=== PATIENT | female | born 1990 | race Two or more races ===

== ENCOUNTER 2017-12-25 08:40 | Outpatient (CLI) | payer OTHER | END 2017-12-25 08:48 | disposition home or self-care (01) | LOC: SONOGRAMA 08:40 | DX: N60.11 Diffuse cystic mastopathy of right breast (principal); N60.12 Diffuse cystic mastopathy of left breast ==

== ENCOUNTER 2020-02-08 10:34 | Outpatient (CLI) | payer OTHER | END 2020-02-08 11:09 | disposition home or self-care (01) | LOC: NST 10:34 | PROVIDERS: ATTEND Obstetrics & Gynecology Maternal & Fetal Medicine | DX: Z34.83 Encounter for supervision of other normal pregnancy, third trimester (principal) ==

== ENCOUNTER 2020-04-02 11:53 | Inpatient (IN) | payer OTHER ==
[~2020-04-02] VITALS: Ht 167.6 cm; Wt 70.3 kg
[2020-04-18] MEDS ORDERED: PRENATAL TABLE1 EAC1 PO (05:20)
== END 2020-04-20 12:55 | disposition home or self-care (01) | DRG 807 ==
LOC: OB/GYN 04-18 04:40 → LDR 04-18 04:40 → OB/GYN 04-18 14:39
PROVIDERS: ADMIT Obstetrics & Gynecology Maternal & Fetal Medicine; ATTEND Obstetrics & Gynecology Maternal & Fetal Medicine
PROC: 10E0XZZ Delivery of Products of Conception, External Approach (ICD-10-PCS; principal; 2020-04-18)
PROC: 0W8NXZZ Division of Female Perineum, External Approach (ICD-10-PCS; 2020-04-18)
PROC: 4A1HXFZ Monitoring of Products of Conception, Cardiac Rhythm, External Approach (ICD-10-PCS; 2020-04-18)
DX: O80 Encounter for full-term uncomplicated delivery (principal); Z37.0 Single live birth; Z3A.39 39 weeks gestation of pregnancy; Z20.822 Contact with and (suspected) exposure to COVID-19

== ENCOUNTER 2020-04-16 12:35 | Outpatient (CLI) | payer OTHER | END 2020-04-16 13:07 | disposition home or self-care (01) | LOC: NST 12:35 | PROVIDERS: ATTEND Obstetrics & Gynecology Maternal & Fetal Medicine | DX: Z34.83 Encounter for supervision of other normal pregnancy, third trimester (principal) ==

== ENCOUNTER 2024-11-24 13:01 | Outpatient (CLI) | payer OTHER ==
[~2024-11-24 13:01] MED LIST: PRENATAL TABLE1 EAC1 PO
== END 2024-11-24 14:36 | disposition home or self-care (01) ==
LOC: NST 13:01
PROVIDERS: ATTEND Obstetrics & Gynecology Maternal & Fetal Medicine
DX: Z34.83 Encounter for supervision of other normal pregnancy, third trimester (principal)

== ENCOUNTER 2024-11-25 13:30 | Inpatient (IN) | payer OTHER ==
[~2024-11-25] VITALS: Ht 167.6 cm; Wt 78.9 kg
[2024-11-30 23:13] VITALS: BP 110/72
[2024-11-30] MEDS ORDERED: FAMOTIDINE/PF 20 MG/2 ML VIAL IV PUSH PRN (23:45)
[2024-11-30] MEDS ORDERED: MORPHINE SULFATE 4 MG/ML CARTRIDGE IV PRN (23:45)
[2024-11-30] MEDS ORDERED: RINGERS SOLUTION,LACTATED 100 ML IV SCH (23:45)
[2024-12-01] VITALS (7 sets, daily range): BP systolic 108–135; BP diastolic 65–93
[2024-12-01 01:06] LABS: URINE APPEARANCE Clear; URINE BILIRRUBIN Negative (NEGATIVE); URINE BLOOD Negative; URINE COLOR Yellow; URINE GLUCOSE Negative (NEGATIVE); URINE KETONE Negative (NEGATIVE); URINE LEUKOCYTE Negative; URINE NITRATE Negative; URINE PROTEIN Negative (NEGATIVE); URINE UROBILINOGEN 0.2 E.U./dl
[2024-12-01 01:09] LABS: URINE WBC 2.4 uL (0.0-23.2)
[2024-12-01 01:10] LABS: BASO % 0.2 % (0.1-1.2); EOS # 0.11 (0.04-0.54); EOS % 1.1 % (0.7-7.0); LYMPH # 2.26 (1.18-3.74); LYMPH % 22.4 % (19.3-53.1); MEAN PLATELET VOLUME 11.30 fl (9.4-12.4); MONO # 0.54 (0.24-0.82); MONO % 5.3 % (4.7-12.5); NEUT # 7.02 (1.56-6.13); NEUT % 69.5 % (34.0-71.1); RED CELL DISTRIBUTION WIDTH 13.2 % (11.6-14.4)
[2024-12-01 01:27] LABS: INR < 0.93
[2024-12-01 01:29] LABS: URINE BACTERIA 3.5 uL (0.0-1933); URINE CAST 0.00 uL (0.0-1.40); URINE EPITHELIAL CELLS 1.2 uL (0.0-38.8); URINE RBC 0.1 uL (0.0-20.8)
[2024-12-01 01:34] LABS: ALT/SGPT 22.0 U/L (12-78); AST/SGOT 16.0 U/L (15-37); BILIRUBIN TOTAL 0.36 mg/dL (0.3-1.2); BUN CREA RATIO 32.0 (7.0-25.0); CREATININE SERUM 0.34 mg/dL (0.55-1.02); GFR 217.86; GLOBULINA 4.0 G/DL (2.4-3.5); GLUCOSE FASTING 86.0 mg/dL (65-100); OSMOLALITY SERUM 280.0 MOSM/KG (275-295)
[2024-12-01] MEDS ORDERED: OXYTOCIN 20 UNITS/500ML RL PIGGYBAG IV ONE (08:15)
[2024-12-01] MEDS ORDERED: OXYTOCIN 500 ML IV ONE (08:30)
[2024-12-01] MEDS ORDERED: ERYTHROMYCIN BASE OPHT 1GM EACH TUBE OP ONE (09:47)
[2024-12-01] MEDS ORDERED: OXYTOCIN 20 UNITS/1000ML RL PIGGYBAG IV ONE (09:47)
[2024-12-01] MEDS ORDERED: CHLORHEXIDINE GLUCONATE 120 ML BOTTLE TOP ONE (09:47)
[2024-12-01] MEDS ORDERED: LIDOCAINE HCL 1% 10ML VIAL ONE (09:48)
[2024-12-01] MEDS ORDERED: OXYTOCIN 1,000 ML IV SCH (11:45)
[2024-12-01] MEDS ORDERED: ACETAMINOPHEN WITH CODEINE 1 UDTAB TABLET PO PRN (11:45)
[2024-12-01] MEDS ORDERED: METHYLERGONOVINE MALEATE 0.2 MG/ML AMPUL ONE (13:04)
[2024-12-01] MEDS ORDERED: METHYLERGONOVINE MALEATE 0.2 MG/ML AMPUL IM STA (13:25)
[2024-12-01] MEDS ORDERED: CARBOPROST TROMETHAMINE 250 MCG/ML AMPUL IM ONE (13:33)
[2024-12-01] MEDS ORDERED: CARBOPROST TROMETHAMINE 250 MCG/ML AMPUL IM PRN (13:45)
[2024-12-01] MEDS ORDERED: METHYLERGONOVINE MALEATE 0.2 MG TABLET PO SCH (18:00)
[2024-12-02 00:33] VITALS: BP 100/64
[2024-12-02 09:00] VITALS: BP 96/56
[2024-12-02 18:52] VITALS: BP 95/55
[2024-12-03 00:07] VITALS: BP 108/71
[2024-12-03 08:10] VITALS: BP 117/68
[2024-12-03 17:23] VITALS: BP 116/70
== END 2024-12-03 17:02 | disposition home or self-care (01) | DRG 807 ==
LOC: LDR 11-30 23:04 → OB/GYN 12-01 12:21 → LDR 12-02 13:30 → OB/GYN 12-02 13:30
PROVIDERS: Obstetrics & Gynecology Gynecology; ADMIT Obstetrics & Gynecology; ATTEND Obstetrics & Gynecology
PROC: BY4FZZZ Ultrasonography of Third Trimester, Single Fetus (ICD-10-PCS; 2024-11-30)
PROC: 4A1HXCZ Monitoring of Products of Conception, Cardiac Rate, External Approach (ICD-10-PCS; 2024-11-30)
PROC: 10E0XZZ Delivery of Products of Conception, External Approach (ICD-10-PCS; principal; 2024-12-01)
PROC: 0KQM0ZZ Repair Perineum Muscle, Open Approach (ICD-10-PCS; 2024-12-01)
DX: O70.1 Second degree perineal laceration during delivery (principal); Z37.0 Single live birth; Z3A.39 39 weeks gestation of pregnancy